=== PATIENT | female | born 1965 | race Two or more races ===

== ENCOUNTER 2018-05-08 10:39 | Emergency (ER) | payer MEDICAID ==
[~2018-05-08] VITALS: Ht 162.6 cm; Wt 74.4 kg
[2018-05-08 10:54] VITALS: BP 117/72
== END 2018-05-08 13:19 | disposition home or self-care (01) ==
LOC: ER 10:39
DX: H61.21 Impacted cerumen, right ear (principal); H60.91 Unspecified otitis externa, right ear; Z98.51 Tubal ligation status

== ENCOUNTER 2018-06-12 08:45 | Emergency (ER) | payer MEDICAID ==
[~2018-06-12] VITALS: Ht 157.5 cm; Wt 74.4 kg
[2018-06-12 08:59] VITALS: BP 111/74
[2018-06-12 09:28] LABS: Urine Bacteria MANY /hpf (None Seen); Urine Blood 2+ /uL (Negative); Urine WBC 3708 /hpf (0 - 5); Urine WBC Clumps PRESENT /hpf (None Seen)
[2018-06-12 09:32] LABS: Urine Specific Gravity 1.013 (1.001-1.035)
[2018-06-12] MEDS ORDERED: cefTRIAXone SOD 1,000 MG VL IM ONE (09:45)
== END 2018-06-12 09:56 | disposition home or self-care (01) ==
LOC: ER 08:45
DX: N39.0 Urinary tract infection, site not specified (principal)
CPT/HCPCS: 81001; 96372; 99283; J0696

== ENCOUNTER 2018-10-12 14:33 | Emergency (ER) | payer MEDICAID ==
[~2018-10-12] VITALS: Ht 160 cm; Wt 73.0 kg
[2018-10-12 14:39] VITALS: BP 123/78
== END 2018-10-12 16:34 | disposition home or self-care (01) ==
LOC: ER 14:33
DX: L73.9 Follicular disorder, unspecified (principal); Z98.51 Tubal ligation status

== ENCOUNTER 2019-01-01 08:49 | Emergency (ER) | payer MEDICAID, OTHER ==
[~2019-01-01] VITALS: Ht 160 cm; Wt 72.6 kg
[2019-01-01 09:25] LABS: Urine Bacteria NONE SEEN /hpf (None Seen); Urine Blood Negative /uL (Negative); Urine Mucus FEW (None Seen); Urine Specific Gravity 1.024 (1.001-1.035); Urine WBC <1 /hpf (0 - 5)
[2019-01-01 10:19] LABS: Basophils # (auto) 0.1 uL; Basophils % (auto) 0.5 % (0.0-2.0); Eosinophils # (auto) 0.1 uL; Eosinophils % (auto) 0.9 % (0.0-7.0); Hematocrit 40.2 % (36.0-46.0); Hemoglobin 13.2 g/dL (12.2-16.2); Lymphocytes # (auto) 1.6 uL; Lymphocytes % (auto) 13.4 % (10.0-50.0); Mean Corpuscular Hemoglobin 29.8 pg (28.0-32.0); Mean Corpuscular Hgb Conc. 32.8 g/dL (32.0-36.0); Mean Corpuscular Volume 90.9 fL (80.0-100.0); Monocytes # (auto) 1.2 uL; Neutrophils # (auto) 8.9 uL; Neutrophils % (auto) 75.2 % (37.0-80.0); Nucleated Red Blood Cells % 0.1 %; Platelet Count (auto) 188 10^3/uL (140-450); Red Blood Cells 4.42 10^6/uL (4.0-5.20); Red Cell Distribution Width 15.2 % (11.8-14.3); White Blood Cell 11.8 10^3/uL (4.4-10.8)
[2019-01-01 10:33] LABS: Albumin 3.2 g/dL (3.4-5.0); Calcium 8.6 mg/dL (8.5-10.1); Potassium 4.2 mmol/L (3.5-5.1)
[2019-01-01 10:37] LABS: BUN/Creatinine Ratio 16.7; Bilirubin, Total 0.9 mg/dL (0.2-1.0); Total Protein 6.7 g/dL (6.4-8.2)
[2019-01-01 18:38] VITALS: BP 118/72
== END 2019-01-01 18:51 | disposition home or self-care (01) ==
LOC: ER 08:49
DX: R10.9 Unspecified abdominal pain (principal); R30.0 Dysuria; Z98.51 Tubal ligation status
CPT/HCPCS: 36415; 74176; 80053; 81001; 81025; 85025